=== PATIENT | male | born 1995 | race American Indian/Alaskan Native ===

== ENCOUNTER 2021-11-28 17:05 | Emergency (ER) | payer MEDICAID ==
--- NOTE | 2021-11-28 19:36 | XRay Report ---
LEFT ANKLE 3 VIEW(S) INDICATION / CLINICAL INFORMATION: pain, injury COMPARISON: None available. FINDINGS: BONES / JOINT(S): No acute fracture or subluxation. Old healed fracture left mid fibular shaft. No si gnificant arthritis. SOFT TISSUES: No significant abnormality. ADDITIONAL FINDINGS: None. IMPRESSION: 1. No acute findings. Signer Name: Patric Naylor MD Signed: 11/28/2021 7:32 PM Workstation Name: [id number]
--- NOTE | 2021-11-28 19:37 | XRay Report ---
LEFT FOOT 3 VIEW(S) INDICATION / CLINICAL INFORMATION: pain, injury COMPARISON: None available. FINDINGS: BONES / JOINT(S): No acute fracture or subluxation. No significant arthritis. SOFT TISSUES: No significant abnormality. ADDITIONAL FINDINGS: None. IMPRESSION: 1. No acute findings. Signer Name: Patric Naylor MD Signed: 11/28/2021 7:32 PM Workstation Name: [id number]
[2021-11-28] MEDS ORDERED: traMADol 50 MG TAB PO ONE (20:56)
--- NOTE | 2021-11-28 21:17 | Emergency Department Report ---
ED Lower Extremity HPI - General Chief Complaint: Extremity Injury, Lower Stated Complaint: SPRAINED ANKLE Time Seen by Provider: 11/28/21 20:51 Source: patient Mode of arrival: Ambulatory Limitations: No Limitations - History of Present Illness Initial Comments: Patient a 26-year-old male who presents for a left great toe pain and swelling states he twisted it playing football yesterday. Now partial weightbearing. There is no deformity no laceration no abrasions no bleeding. Pain is rated at 5/10 exacerbated by weightbearing. Pain is relieved by nothing tried. Patient has history of multiple injuries to same. MD Complaint: foot injury - Related Data Previous Rx's Medication Instructions Recorded Last Taken Type Naproxen 500 mg PO BID PRN #30 tab 11/28/21 Unknown Rx Allergies Allergy/AdvReac Type Severity Reaction Status Date / Time No Known Allergies Allergy Unverified 11/28/21 18:54 ED Review of Systems ROS: Stated complaint: SPRAINED ANKLE Other details as noted in HPI Constitutional: denies: chills, fever Eyes: denies: eye pain, eye discharge, vision change ENT: denies: ear pain, throat pain Respiratory: denies: cough, shortness of breath, wheezing Cardiovascular: denies: chest pain, palpitations Endocrine: no symptoms reported Gastrointestinal: denies: abdominal pain, nausea, diarrhea Genitourinary: denies: urgency, dysuria Musculoskeletal: other (Left great toe pain and swelling no ecchymosis no deformity no step-off no crepitus. 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 bilateral) Skin: denies: rash, lesions Neurological: denies: headache, weakness, numbness, paresthesias Psychiatric: denies: anxiety, depression Hematological/Lymphatic: denies: easy bleeding, easy bruising ED Past Medical Hx - Past Medical History Previous Medical History?: No - Surgical History Past Surgical History?: No - Medications Home Medications: Home Medications Medication Instructions Recorded Confirmed Last Taken Type Naproxen 500 mg PO BID PRN #30 tab 11/28/21 Unknown Rx ED Physical Exam - General Limitations: No Limitations General appearance: alert, in no apparent distress - Head Head exam: Present: normocephalic, normal inspection - Eye Eye exam: Present: EOMI Pupils: Present: normal accommodation - ENT ENT exam: Present: mucous membranes moist - Neck Neck exam: Present: normal inspection - Respiratory Respiratory exam: Present: normal lung sounds bilaterally. Absent: respiratory distress - Cardiovascular Cardiovascular Exam: Present: regular rate, normal rhythm, normal heart sounds. Absent: systolic murmur, diastolic murmur, rubs, gallop - GI/Abdominal GI/Abdominal exam: Present: soft, normal bowel sounds. Absent: distended, tenderness - Rectal Rectal exam: Present: deferred - Extremities Exam Extremities exam: Present: normal inspection, full ROM, normal capillary refill - Expanded Lower Extremity Exam Left Foot/Toe exam: Present: tenderness, swelling. Absent: abrasion, laceration, ecchymosis, deformity, crepidus, dislocation, erythema, amputation, puncture wound, foreign body, calcaneal tenderness, tenderness at base of 5th metatarsal, nail avulsion, subungual hematoma Neuro vascular tendon exam: Absent: pulse deficit, motor deficit, sensory deficit, tendon deficit Gait: Positive: observed and limited by pain - Back Exam Back exam: Present: normal inspection, full ROM. Absent: paraspinal tenderness, vertebral tenderness - Neurological Exam Neurological exam: Present: alert, oriented X3, CN II-XII intact, reflexes normal. Absent: motor sensory deficit - Expanded Neurological Exam Expanded Patient oriented to: Present: person, place, time Speech: Present: fluid speech Motor strength exam: RLE: 5, LLE: 5 DTR: ankle (R): 1+, ankle (L): 1+ Best Eye Response ([place]): (4) open spontaneously Best Motor Response ([place]): (6) obeys commands Best Verbal Response ([place]): (5) oriented [place] Total: 15 - Psychiatric Psychiatric exam: Present: normal affect, normal mood - Skin Skin exam: Present: warm, dry, intact, normal color. Absent: rash ED Course Vital Signs 11/28/21 18:53 Temperature 98.6 F Pulse Rate 71 Respiratory 18 Rate Blood Pressure 138/88 O2 Sat by Pulse 97 Oximetry ED Lower Extremity MDM - Radiology Data Radiology results: report reviewed, image reviewed LEFT FOOT 3 VIEW(S) INDICATION / CLINICAL INFORMATION: pain, injury COMPARISON: None available. FINDINGS: BONES / JOINT(S): No acute fracture or subluxation. No significant arthritis. SOFT TISSUES: No significant abnormality. ADDITIONAL FINDINGS: None. IMPRESSION: 1. No acute findings. Signer Name: Patric Naylor MD Signed: 11/28/2021 7:32 PM Workstation Name: [id number] Transcribed By: TL Dictated By: Patric Naylor MD Electronically Authenticated By: Patric Naylor MD Signed Date/Time: 11/28/211931 DD/ 31 TD/TT: LEFT ANKLE 3 VIEW(S) INDICATION / CLINICAL INFORMATION: pain, injury COMPARISON: None available. FINDINGS: BONES / JOINT(S): No acute fracture or subluxation. Old healed fracture left mid fibular shaft. No significant arthritis. SOFT TISSUES: No significant abnormality. ADDITIONAL FINDINGS: None. IMPRESSION: 1. No acute findings. Signer Name: Patric Naylor MD Signed: 11/28/2021 7:32 PM Workstation Name: [id number] Transcribed By: TL Dictated By: Patric Naylor MD Electronically Authenticated By: Patric Naylor MD Signed Date/Time: 11/28/211931 DD/ 30 TD/TT: - Medical Decision Making X-rays negative for fracture no subluxation no dislocation plan diagnosis foot sprain plan Kirby wrap, RICE therapy, crutches, NSAIDs as needed. Patient verbalized agreement understanding of same. Patient has demonstrated safe use of crutches at this time. Patient DC'd home in stable condition. Patient will follow up with primary care doctor in 2 to 3 days. Patient verbalized agreement understanding of discharge plan. Patient DC'd in stable condition at this time. Critical care attestation.: If time is entered above; I have spent that time in minutes in the direct care of this critically ill patient, excluding procedure time. ED Disposition Clinical Impression: Foot sprain Qualifiers: Encounter type: initial encounter Laterality: left Qualified Code(s): S93.602A - Unspecified sprain of left foot, initial encounter Disposition: 01 HOME / SELF CARE / HOMELESS Is pt being admited?: No Does the pt Need Aspirin: No Condition: Stable Instructions: Elastic Bandage and RICE Therapy, Foot Sprain, Crutch Use, Adult, [id number] Additional Instructions: Take medication as prescribed, RICE therapy as directed. Use crutches as dir ected. Follow-up with your doctor in 2 to 3 days. Return to emergency department should symptoms worsen Prescriptions: Naproxen 500 mg PO BID PRN #30 tab PRN Reason: pain Referrals: MEHDI SIMMONS MD [Staff Physician] - 3-5 Days Forms: Work/School Release Form(ED) Time of Disposition: 21:22
[2021-11-28 22:12] VITALS: BP 127/82
== END 2021-11-28 22:11 | disposition home or self-care (01) ==
LOC: ED 17:05
DX: S93.602A Unspecified sprain of left foot, initial encounter (principal); W50.2XXA Accidental twist by another person, initial encounter; Y93.89 Activity, other specified; Y92.89 Other specified places as the place of occurrence of the external cause; Y99.8 Other external cause status
CPT/HCPCS: 99283